=== PATIENT | female | born 1955 | race Caucasian/White ===

== ENCOUNTER → 2018-01-18 | Day surgery (SDC) | payer OTHER ==
[2018-01-10 15:44] VITALS: BMI 24.0
[~2018-01-18] VITALS: Ht 154.9 cm; Wt 59.1 kg
[~2018-01-18] MED LIST: CALC-48 PO; CHOL1000 PO; CITA20TA4 PO; INSUINJ7 SC; LEVO50TA6 PO; LIDOCAINE HCL 2% 2 ML VIAL (20MG/ML) ONE; MAGN500C PO; PROPOFOL IV EMULSION 10 MG/ML 20 ML VIAL ONE; ROPI1TAB PO; SODIUM CHLORIDE 0.9% 500ML 500 ML IV ONE; TRAZ50TA35 PO
[2018-01-18 09:55] VITALS: Ht 154.9 cm; Wt 59.1 kg
--- NOTE | 2018-01-18 10:04 | Endo History and Physical ---
History & Physical Date of Service: Jan 18, 2018. Chief Complaint: Screening Referring Physician: Dr. Mujica History of Present Illness 62 yo CF who presents for screening colonoscopy. Past Surgical History Hx Cardiac Surgery: No Hx Internal Defibrillator: No Hx Pacemaker: No Hx Abdominal Surgery: No Hx of Implantable Prosthesis: No Hx Post-Op Nausea and Vomiting: No Hx Cancer Surgery: No Hx Thoracic Surgery: No Hx Orthopedic: No Hx Urinary Tract Surgery: No Family History None Social History Smoking Status: Never Smoker Hx Substance Use: No Hx Alcohol Use: No Allergies Coded Allergies: Sulfa Drugs (Verified Allergy, Mild, RASH, 01/18/18) Current Medications Reported Home Medications Medications Dose Route/Sig Max Daily Dose Days Date Category Dose Instructions Vitamin D3 (Cholecalciferol) 1,000 Unit Tab 1 Tab PO DAILY 01/10/18 Reported Trazodone (Trazodone HCl) 50 Mg Tab 50 Mg PO HS 01/10/18 Reported Requip (Ropinirole HCl) 1 Mg Tab 1 Mg PO HS 01/10/18 Reported Novolin R U-100 (Insulin Regular (Human)) 100 Unit/Ml Inj 1 Dose SC BID 01/10/18 Reported 8 UNITS IN AM 6 UNITS IN PM (WILL USE SLIDING SCALE AND ADJUST DOSE WITH MEALS) Magnesium (Magnesium Oxide (Mg Supplement) 500 Mg Cap 1 Cap PO DAILY 01/10/18 Reported Levothyroxine Sodium 50 Mcg Tab 1 Tab PO QAM 01/10/18 Reported Citalopram Hydrobromide 20 Mg Tab 0.5 Tab PO QAM 01/10/18 Reported Nbu-Oxy-Mvna-D (Multiple Minerals W/ Vitamins) 1 Tab Tab 1 Tab PO DAILY 01/10/18 Reported Vital Signs Weight (Kilograms): 59.09 Height (Feet): 5 Height (Inches): 1 Physical Exam General Appearance: WD/WN, no apparent distress Respiratory/Chest: Auscultation: breath sounds normal Cardiovascular: Heart Auscultation: RRR Abdomen: Bowel Sounds: normal Inspection & Palpation: soft, non-distended, no tenderness, guarding & rebound Assessment and Plan Assessment: 62 yo CF who presents for screening colonoscopy. Plan: Proceed with colonoscopy.
--- NOTE | 2018-01-18 10:38 | Discharge Instructions ---
Endoscopy Patient Instructions Date / Procedure(s) Performed Jan 18, 2018. Colonoscopy Allergy Information Coded Allergies: Sulfa Drugs (Verified Allergy, Mild, RASH, 01/18/18) Discharge Date / Findings Jan 18, 2018. Internal hemorrhoids Medication Instructions Stopped Medication(s): TO CUT INSULIN DOSE IN HALF TO 8U OK to resume all medications today as prescribed Reported Home Medications Medications Dose Route/Sig Max Daily Dose Days Date Category Dose Instructions Vitamin D3 (Cholecalciferol) 1,000 Unit Tab 1 Tab PO DAILY 01/10/18 Reported Trazodone (Trazodone HCl) 50 Mg Tab 50 Mg PO HS 01/10/18 Reported Requip (Ropinirole HCl) 1 Mg Tab 1 Mg PO HS 01/10/18 Reported Novolin R U-100 (Insulin Regular (Human)) 100 Unit/Ml Inj 1 Dose SC BID 01/10/18 Reported 8 UNITS IN AM 6 UNITS IN PM (WILL USE SLIDING SCALE AND ADJUST DOSE WITH MEALS) Magnesium (Magnesium Oxide (Mg Supplement) 500 Mg Cap 1 Cap PO DAILY 01/10/18 Reported Levothyroxine Sodium 50 Mcg Tab 1 Tab PO QAM 01/10/18 Reported Citalopram Hydrobromide 20 Mg Tab 0.5 Tab PO QAM 01/10/18 Reported Jyd-Esz-Xfxr-D (Multiple Minerals W/ Vitamins) 1 Tab Tab 1 Tab PO DAILY 01/10/18 Reported Provider Instructions Activity Restrictions - No exercising or heavy lifting for 24 hours. - Do not drink alcohol the day of the procedure. - Do not drive a car or operate machinery until the day after the procedure. - Do not make any important decisions or sign important papers in 24 hours after the procedure. Following Day: - Return to full activity which may include returning to work/school. Diet Start your diet with liquids and light foods (jello, soup, juice, toast). Then eat your usual diet if not nauseated. Treatment For Common After Affects For mild abdominal pain, bloating, or excessive gas: - Rest - Eat lightly - Lie on right side Follow-Up Information Follow-up with DR. LEE as scheduled Anesthesia Information What You Should Know You have had a procedure that required some medicine to reduce anxiety and discomfort. This treatment is called moderate sedation. After receiving the treatment, you may be sleepy, but you will be able to breathe on your own. The effects of the treatment may last for several hours. Follow these instructions along with Activity/Diet recommendations noted above: * Do NOT do anything where dizziness or clumsiness would be dangerous. * Rest quietly at home today, then you can be up and about tomorrow. * Have a responsible person stay with you the rest of today. * You may have had an I.V. today. If so, you may take the dressing off later today. Recommendations Call your doctor if: * Trouble breathing * Continuous vomiting for more than 24 hours * Temperature above 101 degrees * Severe abdominal pain or bloating * Pain not relieved by pain medicine ordered * There is increased drainage or redness from any incision * A large amount of rectal bleeding greater than 2-3 tablespoons. (If you had a polyp/s removed or have hemorrhoids, a small amount of blood - from the rectum is to be expected.) * You have any unanswered questions or concerns. IN THE EVENT OF A SERIOUS EMERGENCY, GO TO THE NEAREST EMERGENCY ROOM Your discharge instructions were prepared by provider Julien Felton. Patient Instructions Signature Page Beverly Nava Patient (or Guardian) Signature/Date: I have read and understand the instructions given to me by my caregivers. Caregiver/RN/Doctor Signature/Date: The above-named patient and/or guardian has received patient instructions on this date. + Original Patient Signature Page (only) stays with chart. Please make copy for patient.
--- NOTE | 2018-01-18 10:39 | GI REPORT ---
Patient Name: Beverly Nava Procedure Date: 01/18/2018 10:16 AM Date of : 1955 Admit Type: Outpatient Age: 62 Gender: Female Attending MD: Julien Felton DO Procedure: Colonoscopy Providers: Julien Felton DO Referring MD: Amada Reyna Indications: Screening for colorectal malignant neoplasm Medicines: Monitored Anesthesia Care Complications: No immediate complications. Estimated Blood Loss: Estimated blood loss: none. Procedure: Pre-Anesthesia Assessment: - Prior to the procedure, a History and Physical was performed, and patient medications and allergies were reviewed. The patient's tolerance of previous anesthesia was also reviewed. The risks and benefits of the procedure and the sedation options and risks were discussed with the patient. All questions were answered, and informed consent was obtained. Prior Anticoagulants: The patient has taken no previous anticoagulant or antiplatelet agents. ASA Grade Assessment: II - A patient with mild systemic disease. After reviewing the risks and benefits, the patient was deemed in satisfactory condition to undergo the procedure. After I obtained informed consent, the scope was passed under direct vision. Throughout the procedure, the patient's blood pressure, pulse, and oxygen saturations were monitored continuously. The On-site loaner was introduced through the anus and advanced to the terminal ileum. The colonoscopy was performed without difficulty. The patient tolerated the procedure well. The quality of the bowel preparation was good. The terminal ileum, ileocecal valve, appendiceal orifice, and rectum were photographed. Findings: The perianal and digital rectal examinations were normal. Non-bleeding internal hemorrhoids were found during retroflexion. The hemorrhoids were small. Impression: - Non-bleeding internal hemorrhoids. - No specimens collected. Recommendation: - Resume previous diet. - Continue present medications. - Repeat colonoscopy in 10 years for surveillance. - Return to primary care physician as previously scheduled. Julien Felton DO 01/18/2018 10:39:35 AM This report has been signed electronically. Note Initiated On: 01/18/2018 10:16 AM Number of Addenda: 0 I attest to the content of the Intraoperative Record and orders documented therein, exceptions below {[id number]}
--- NOTE | 2018-01-18 10:49 | Anesthesiology Progress Note ---
Anesthesia Post Op Note Date & Time Jan 18, 2018 at 10:49 Vital Signs Pain Intensity: 0 Vital Signs Past 12 Hours Date Time Temp Pulse Resp B/P (MAP) Pulse Ox O2 Delivery O2 Flow Rate FiO2 01/18/18 10:41 36.4 59 18 101/44 (63) 98 Room Air 01/18/18 10:09 36.6 63 18 157/85 (109) 98 Room Air Notes Mental Status: alert / awake / arousable, participated in evaluation Pt Amnestic to Procedure: Yes Nausea / Vomiting: adequately controlled Pain: adequately controlled Airway Patency, RR, SpO2: stable & adequate BP & HR: stable & adequate Hydration State: stable & adequate Anesthetic Complications: no major complications apparent
[2018-01-18 11:11] VITALS: BP 121/62; PULSE 53; O2SAT 98
== END | disposition home or self-care (01) ==
LOC: C.GI 09:13
PROVIDERS: ATTEND Internal Medicine
DX: Z12.11 Encounter for screening for malignant neoplasm of colon (principal); K64.8 Other hemorrhoids; E11.9 Type 2 diabetes mellitus without complications; Z79.4 Long term (current) use of insulin; E03.9 Hypothyroidism, unspecified